=== PATIENT | female | born 1990 | race African-American/Black ===

== ENCOUNTER 2018-09-29 12:30 | Emergency (ER) | payer MEDICAID, OTHER ==
[~2018-09-29] VITALS: Ht 167.6 cm; Wt 82.8 kg
[2018-09-29 12:50] VITALS: BP 107/66
--- NOTE | 2018-09-29 13:59 | NUR ---
HAVING LEG PAINS FOR THE PAST FEW WEEKS. WORKS A [employer] AND DOES WALKING ALL DAY LONG. PAIN OCCURS MOSTLY AT NIGHT AND SOMETIMES DURING THE DAY. REST HELPS THE PAIN SUBSIDE. PAIN IS IN LEFT THIGH AND RIGHT HIP, RADIATING DOWN LEG. PAIN GETS UP TO 10/10, THEN RESTING IMPROVES THE SITUATION.
== END 2018-09-29 14:12 | disposition home or self-care (01) ==
LOC: ER 12:33
DX: M70.62 Trochanteric bursitis, left hip (principal); M70.61 Trochanteric bursitis, right hip; Y93.01 Activity, walking, marching and hiking
CPT/HCPCS: 99281